=== PATIENT | male | born 1950 | race Caucasian/White ===

== ENCOUNTER → 2016-11-16 | Day surgery (SDC) | payer MEDICARE ==
[~2016-11-16] VITALS: Ht 167.6 cm; Wt 79.4 kg
[~2016-11-16] MED LIST: 0.9% Sodium Chloride 1,000 ML IV PRN; LOVA20TA PO; Sodium Chloride LOK Flush 10 mL Syringe IV PRN; fentaNYL-PF 50 mCg/mL 2 mL Inj IVPUSH PRN
[2016-11-16 09:46] VITALS: BP 131/87; PULSE 62; RESP 12; O2SAT 99
[2016-11-16 10:39] VITALS: BP 118/76; PULSE 59; O2SAT 92
[2016-11-16 10:49] VITALS: BP 113/77; PULSE 58; O2SAT 95
[2016-11-16 11:02] VITALS: BP 117/77; PULSE 69; O2SAT 95
--- NOTE | 2016-11-16 11:35 | ENDO ---
[address] [address] ENDOSCOPY PROCEDURE PATIENT: PADILLA PURI : 1950 MR#: [id number] ADMIT: 11/16/2016 JOB ID: [id number] DATE: 11/16/2016 TYPE OF PROCEDURE: Colonoscopy. INDICATIONS: Screening. Patient's ASA classification is two. Mallampati score is two. MEDICATIONS: 1. Versed 5 mg. 2. Fentanyl 100 mcg. INSTRUMENT USED: PCF-H180AL PREPARATION QUALITY: Good. PROCEDURE DETAILS: After informed consent was obtained, the patient was brought to the GI suite, where she was placed on oxygen via nasal cannula and monitored with continuous pulse oximeter, telemetry, and blood pressure monitoring. A time-out was performed. Then, she was placed in a left lateral decubitus position and medications were administered for sedation. A digital rectal exam was performed, which revealed an enlarged prostate without any palpable masses. The colonoscope was then inserted into the rectum and advanced under direct visualization to the cecum, which was identified by the presence of the ileocecal valve and appendiceal orifice. Once the cecum was reached the colonoscope was withdrawn back into the rectum as the mucosa and lumen were examined. In the rectum, retroflexion was performed. Following retroflexion, remaining air in the rectum was suctioned, and procedure was completed. FINDINGS: Scattered diverticula were seen throughout the left side of the colon. Otherwise normal exam from rectum to cecum. IMPRESSION: Left-sided diverticulosis. RECOMMENDATIONS: Repeat colonoscopy in 10 years, sooner if symptoms should dictate. COMPLICATIONS: None. ESTIMATED BLOOD LOSS: Zero.
== END | disposition home or self-care (01) ==
LOC: END 01:31
PROVIDERS: ATTEND Internal Medicine Gastroenterology
DX: Z12.11 Encounter for screening for malignant neoplasm of colon (principal); K57.30 Diverticulosis of large intestine without perforation or abscess without bleeding; N40.0 Benign prostatic hyperplasia without lower urinary tract symptoms
CPT/HCPCS: G0121; G0500; J2250; J3010; J7030